=== PATIENT | male | born 1985 | race Two or more races ===

== ENCOUNTER 2016-12-17 21:31 | Emergency (ER) | payer MEDICAID ==
[2016-12-17] MEDS ORDERED: DIPH/PERTUSS(ACELL)/TETANUS VAC/PF 0.5 ML SYR (>=10YO) IM ONE (22:25)
--- NOTE | 2016-12-17 22:39 | ER Document Report ---
ED Medical Screen (RME) - General Stated Complaint: FOOT PAIN Notes: 31-year-old male, chief complaint of stepping on a nail while indoors, object went through his shoe and sock, patient reports swelling to his right foot. Tetanus is not up-to-date reportedly. Patient states he did not see the nail afterwards, he states he thinks something is stuck in his foot. TRAVEL OUTSIDE OF THE [place] IN LAST 30 DAYS: No - Related Data Allergies/Adverse Reactions: No Known Allergies Allergy (Unverified 12/17/16 22:19) Past Medical History - Social History Chew tobacco use (# tins/day): No Frequency of alcohol use: None Drug Abuse: None Renal/ Medical History: Denies: Hx Peritoneal Dialysis Physical Exam - Vital signs Vitals: Temp Pulse Resp BP Pulse Ox 98.1 F 84 18 111/61 97 12/17/16 22:14 12/17/16 22:14 12/17/16 22:14 12/17/16 22:14 12/17/16 22:14 - Extremities General lower extremity: Other - Tiny questionable entry wound on the plantar aspect of the right foot, there is definite swelling and tenderness, no erythema or heat noted, normal capillary refill and sensation Course - Vital Signs Vital signs: Temp Pulse Resp BP Pulse Ox 98.1 F 84 18 111/61 97 12/17/16 22:14 12/17/16 22:14 12/17/16 22:14 12/17/16 22:14 12/17/16 22:14
[2016-12-18] MEDS ORDERED: CEFTRIAXONE INJ 1000 MG VIAL IM ONE (04:01)
[2016-12-18] MEDS ORDERED: LIDOCAINE 1% INJ-PF (10 MG/ML) 30 ML SDV INJ ONE (04:01)
[2016-12-18] MEDS ORDERED: CIPROFLOXACIN HCL 500 MG TABLET PO ONE (04:02)
[2016-12-18] MEDS ORDERED: DOXYCYCLINE HYCLATE 100 MG TABLET PO ONE (04:02)
--- NOTE | 2016-12-18 04:24 | ER Document Report ---
ED Extremity Problem, Lower - General Chief Complaint: Foot Injury Stated Complaint: FOOT PAIN Time seen by provider: 03:45 Notes: 31-year-old male, chief complaint of stepping on a nail while indoors, object went through his shoe and sock, patient reports swelling to his right foot. Tetanus is not up-to-date reportedly. Patient states he did not see the nail afterwards, he states he thinks something is stuck in his foot. TRAVEL OUTSIDE OF THE [place] IN LAST 30 DAYS: No - Related Data Allergies/Adverse Reactions: No Known Allergies Allergy (Unverified 12/17/16 22:19) Past Medical History - General Information source: Patient, Friend - Social History Smoking Status: Never Smoker Chew tobacco use (# tins/day): No Frequency of alcohol use: None Drug Abuse: None Lives with: Family Family History: Reviewed & Not Pertinent Patient has suicidal ideation: No Patient has homicidal ideation: No - Medical History Medical History: Negative Renal/ Medical History: Denies: Hx Peritoneal Dialysis Surgical Hx: Negative - Immunizations Immunizations up to date: No Hx Diphtheria, Pertussis, Tetanus Vaccination: Yes Review of Systems - Review of Systems Constitutional: No symptoms reported EENT: No symptoms reported Cardiovascular: No symptoms reported Respiratory: No symptoms reported Gastrointestinal: No symptoms reported Genitourinary: No symptoms reported Male Genitourinary: No symptoms reported Musculoskeletal: See HPI Skin: See HPI Hematologic/Lymphatic: No symptoms reported Neurological/Psychological: No symptoms reported Physical Exam - Vital signs Vitals: Temp Pulse Resp BP Pulse Ox 98.1 F 84 18 111/61 97 12/17/16 22:14 12/17/16 22:14 12/17/16 22:14 12/17/16 22:14 12/17/16 22:14 Interpretation: Normal - General General appearance: Appears well, Alert In distress: None - HEENT Head: Normocephalic, Atraumatic Eyes: Normal Pupils: PERRL - Respiratory Respiratory status: No respiratory distress Chest status: Nontender Breath sounds: Normal Chest palpation: Normal - Cardiovascular Rhythm: Regular Heart sounds: Normal auscultation Murmur: No - Abdominal Inspection: Normal Distension: No distension Bowel sounds: Normal Tenderness: Nontender Organomegaly: No organomegaly - Back Back: Normal, Nontender - Extremities General upper extremity: Normal inspection, Nontender, Normal color, Normal ROM , Normal temperature General lower extremity: Other - There appears to be a tiny puncture wound over the plantar aspect of the right foot between the second and third digits at the MCP area. Mild soft tissue swelling of the foot, no significant erythema, no bleeding noted, no abnormal heat, normal capillary refill and sensation, normal foot exam otherwise, normal ankle exam - Neurological Neuro grossly intact: Yes Cognition: Normal Orientation: AAOx4 [place] Coma Scale Eye Opening: Spontaneous [place] Coma Scale Verbal: Oriented [place] Coma Scale Motor: Obeys Commands [place] Coma Scale Total: 15 Speech: Normal Motor strength normal: LUE, RUE, LLE, RLE Sensory: Normal - Psychological Associated symptoms: Normal affect, Normal mood - Skin Skin Temperature: Warm Skin Moisture: Dry Skin Color: Normal Course - Re-evaluation Re-evalutation: Patient with puncture to the bottom of the foot, not a through and through injury, mild soft tissue swelling to the area, no erythema, abnormal heat, or other abnormalities noted. Tetanus updated, patient given a dose of Rocephin, because obtain went through patient's shoe patient will be given Cipro in addition to covering for skin bacteria. Discussed strict follow-up and return precautions with patient and friend, friend interpreted Korean for patient on patient's request. Patient states understanding and agreement. - Vital Signs Vital signs: Temp Pulse Resp BP Pulse Ox 98.8 F 69 16 114/70 99 12/18/16 05:10 12/18/16 05:10 12/18/16 05:10 12/18/16 05:10 12/18/16 05:10 - Diagnostic Test Radiology reviewed: Image reviewed, Reports reviewed Discharge - Discharge Clinical Impression: Nail wound of right foot Qualifiers: Encounter type: initial encounter Qualified Code(s): S91.331A - Puncture wound without foreign body, right foot, initial encounter Condition: Stable Disposition: HOME, SELF-CARE Additional Instructions: The x-ray shows no abnormalities. Please take the doxycycline and Cipro antibiotics as directed, elevate her foot , keeps her foot clean, clean with soap and water, dry, apply antibiotic dressing to the wound. Use the crutches, follow up with primary care or return to the ED for a recheck in 2 days. Prescriptions: Ciprofloxacin HCl [Cipro 500 mg Tablet] 500 mg PO BID #14 tablet Doxycycline Hyclate 100 mg PO BID #14 capsule Forms: Return to Work
[2016-12-18 05:23] VITALS: BP 114/70
== END 2016-12-18 05:10 | disposition home or self-care (01) ==
LOC: ER 21:31
DX: S91.331A Puncture wound without foreign body, right foot, initial encounter (principal); W22.8XXA Striking against or struck by other objects, initial encounter; Z23 Encounter for immunization
CPT/HCPCS: 99283; 96372; 73630; J3490 ×3; J0696

== ENCOUNTER 2017-10-26 19:03 | Emergency (ER) | payer MEDICAID, OTHER ==
[2017-10-26] MEDS ORDERED: DIPH/PERTUSS(ACELL)/TETANUS VAC/PF 0.5 ML SYR (>=10YO) IM ONE (20:35)
[2017-10-26] MEDS ORDERED: SILVER SULFADIAZINE 1% CREAM 25 GM TP ONE (20:53)
--- NOTE | 2017-10-26 20:57 | ER Document Report ---
ED General - General Chief Complaint: Burn Stated Complaint: POSSIBLE BURN Time Seen by Provider: 10/26/17 20:35 Mode of Arrival: Ambulatory Information source: Patient Notes: MARTII was used to ensure proper interpretation TRAVEL OUTSIDE OF THE [place] IN LAST 30 DAYS: No - HPI Notes: 32-year-old male with history of asthma presents with left forearm burn he suffered 2 days ago. This occurred in the evening at work at [employer]. He was putting [place] fries into oil in the oral splattered and then apparently he got more hot oil on his left forearm. There was no inhalation. He had one splatter to his left neck area. Initially it was just red but has now become more inflamed appearing and some skin has sloughed off. He has no distal numbness or tingling. It does not involve any joints or the hand itself. He was not wearing gloves. They apparently put a burn spray on it at work. He has had no other treatment otherwise. Denies any other systemic symptoms though has had some mild cough and cold symptoms for the last 4 or 5 days even before this. - Related Data Allergies/Adverse Reactions: No Known Allergies Allergy (Verified 10/26/17 19:18) Past Medical History - Social History Smoking Status: Never Smoker Frequency of alcohol use: None Drug Abuse: None Family History: Reviewed & Not Pertinent Patient has suicidal ideation: No Patient has homicidal ideation: No Pulmonary Medical History: Reports: Hx Asthma Endocrine Medical History: Denies: Hx Diabetes Mellitus Type 1, Hx Diabetes Mellitus Type 2 Renal/ Medical History: Denies: Hx Peritoneal Dialysis - Immunizations Immunizations up to date: No Hx Diphtheria, Pertussis, Tetanus Vaccination: Yes Review of Systems - Review of Systems Constitutional: denies: Fever EENT: See HPI Cardiovascular: See HPI Respiratory: denies: Short of breath, Sputum Skin: See HPI Neurological/Psychological: denies: Numbness Physical Exam - Vital signs Vitals: Temp Pulse Resp BP 98.3 F 89 20 130/83 H 10/26/17 19:30 10/26/17 19:30 10/26/17 19:30 10/26/17 19:30 Interpretation: Normal, Hypertensive - Patient instructed for follow-up - Notes Notes: GENERAL: VS as per nursing doc. Well-appearing, well-nourished and in no acute distress. HEAD: Atraumatic, normocephalic. EYES: No ocular burn, no conjunctival injection or discharge. ENT: Nares patent, no facial burn, there is a small area approximately 2 mm over his left neck SCM where there has been a recent burn. NECK: Normal range of motion, supple without lymphadenopathy. See above LUNGS: Breath sounds clear to auscultation bilaterally and equal. No wheezes rales or rhonchi. HEART: Regular rate and rhythm without murmurs. 2+ radial pulse EXTREMITIES: Normal range of motion NEUROLOGICAL: Normal sensory and motor exams PSYCH: Normal mood, normal affect. SKIN: Warm, dry. There is a denuded area of approximately 5 cm that is circular in the midportion of what appears to be a second-degree burn over the volar surface of the forearm extending approximately 15 cm in length and approximately 8 cm in width. It is irregular shaped. There is some overlying skin that does not appear viable but it is not loose and appears very adherent at this point. Mild associated erythema. No evidence of secondary infection or lymphangitis. Course - Re-evaluation Re-evalutation: 10/26/17 21:04 We had a long discussion and all questions were answered. Please see the discharge instructions were verbally understood using staff interpreter both in and MARTII. Tetanus shot is updated. Wound care instructions given. They voiced understanding they must be seen tomorrow by here are occupational health, at least notified and wound check in the next 48 hours. - Vital Signs Vital signs: Temp Pulse Resp BP Pulse Ox 98.3 F 89 20 130/83 H 10/26/17 19:30 10/26/17 19:30 10/26/17 19:30 10/26/17 19:30 Discharge - Discharge Clinical Impression: Second degree burn injury Condition: Good Disposition: HOME, SELF-CARE Additional Instructions: Wash the wound with soap and water twice daily, pat dry and let air dry. Then apply a light coat of Silvadene twice daily with wrap to keep the cream from getting everywhere. Let your occupational health know tomorrow morning that you were seen here tonight, treatment plans, mandatory reevaluation within the next 36 hours as well as tetanus shot was updated. They will make you make a report of this injury and assigned you a physician for follow-up. Return for any problems or concerns in the meanwhile. Use an anti-inflammatory such as ibuprofen or Aleve. Keep the area clean dry and protected otherwise.Longo The seriousness of a burn is not always obvious at first. Delayed tissue damage and secondary infection may occur despite proper treatment. Proper care is very important. A burn that is third-degree may need skin grafting. Most longo, however, are simply protected with dressings until healed. Keep the burn clean. If the dressing gets wet, remove it and blot the wound dry, then apply a fresh dressing. Dressings should be changed at least once daily. Soaks to remove crusting are usually started in about two days. Longo in certain areas require stretching to prevent disabling tightness. Your doctor will advise you about this. For pain control, you may frequently apply a hand towel that has been dipped in water with ice cubes. Do not apply ice directly to the burned areas. If any signs of infection occur (swelling, redness, increasing tenderness, red streaks, tender lumps in the armpit or groin above the burn, or fever), contact the doctor immediately. Wash the wound with soap and water twice daily, pat dry and let air dry. Then apply a light coat of Silvadene twice daily with wrap to keep the cream from getting everywhere. Let your occupational health know tomorrow morning that you were seen here tonight, treatment plans, mandatory reevaluation within the next 36 hours as well as tetanus shot was updated. They will make you make a report of this injury and assigned you a physician for follow-up. Return for any problems or concerns in the meanwhile. Use an anti-inflammatory such as ibuprofen or Aleve. Keep the area clean dry and protected otherwise.
[2017-10-26 22:09] VITALS: BP 123/78
== END 2017-10-26 22:10 | disposition home or self-care (01) ==
LOC: ER 19:03
DX: T22.212A Burn of second degree of left forearm, initial encounter (principal); X10.2XXA Contact with fats and cooking oils, initial encounter; Y93.G3 Activity, cooking and baking; Y92.511 Restaurant or cafe as the place of occurrence of the external cause; Y99.0 Civilian activity done for income or pay; J45.909 Unspecified asthma, uncomplicated; Z23 Encounter for immunization
CPT/HCPCS: 90471; 90715; 99283

== ENCOUNTER 2017-10-28 17:14 | Emergency (ER) | payer OTHER ==
[2017-10-28] MEDS ORDERED: SILVER SULFADIAZINE 1% CREAM 50 GM TP ONE (19:22)
--- NOTE | 2017-10-28 19:23 | ER Document Report ---
ED Suture/Wound Recheck - General Chief Complaint: Wound Recheck Stated Complaint: RECHECK BURN ON LEFT ARM Time Seen by Provider: 10/28/17 19:04 Notes: pt here for recheck of burn to left forearm. pt burned arm 2 days ago at work, splattered with hot grease while cooking [place] fries. pt has been cleaning with soap and water and applying silvadene as instructed. reports minimal pain. TRAVEL OUTSIDE OF THE [place] IN LAST 30 DAYS: No - HPI Previous ED treatment: Burn dressing Antibiotics given previously: Prescription Quality of pain: No pain Context: Injury, Work related Symptoms since procedure: No complaints Exacerbated by: Denies Relieved by: Denies - Related Data Allergies/Adverse Reactions: No Known Allergies Allergy (Verified 10/26/17 19:18) Past Medical History - General Information source: Patient - Social History Smoking Status: Never Smoker Frequency of alcohol use: None Drug Abuse: None Family History: Reviewed & Not Pertinent Patient has suicidal ideation: No Patient has homicidal ideation: No Pulmonary Medical History: Reports: Hx Asthma Endocrine Medical History: Denies: Hx Diabetes Mellitus Type 1, Hx Diabetes Mellitus Type 2 Renal/ Medical History: Denies: Hx Peritoneal Dialysis - Immunizations Immunizations up to date: No Hx Diphtheria, Pertussis, Tetanus Vaccination: Yes Review of Systems - Review of Systems Constitutional: No symptoms reported EENT: No symptoms reported Cardiovascular: No symptoms reported Respiratory: No symptoms reported Gastrointestinal: No symptoms reported Genitourinary: No symptoms reported Male Genitourinary: No symptoms reported Musculoskeletal: No symptoms reported Skin: See HPI Hematologic/Lymphatic: No symptoms reported Neurological/Psychological: No symptoms reported Physical Exam - Vital signs Vitals: Temp Pulse Resp BP Pulse Ox 98.4 F 67 18 125/81 97 10/28/17 17:25 10/28/17 17:25 10/28/17 17:25 10/28/17 17:25 10/28/17 17:25 Interpretation: Normal - General General appearance: Appears well, Alert - HEENT Head: Normocephalic, Atraumatic Eyes: Normal Pupils: PERRL - Respiratory Respiratory status: No respiratory distress Chest status: Nontender Breath sounds: Normal Chest palpation: Normal - Cardiovascular Rhythm: Regular Heart sounds: Normal auscultation Murmur: No - Abdominal Inspection: Normal Distension: No distension Bowel sounds: Normal Tenderness: Nontender Organomegaly: No organomegaly - Back Back: Normal, Nontender - Extremities General upper extremity: Normal inspection, Nontender, Normal color, Normal ROM , Normal temperature General lower extremity: Normal inspection, Nontender, Normal color, Normal ROM , Normal temperature, Normal weight bearing. No: Gabby's sign - Neurological Neuro grossly intact: Yes Cognition: Normal Orientation: AAOx4 [place] Coma Scale Eye Opening: Spontaneous [place] Coma Scale Verbal: Oriented [place] Coma Scale Motor: Obeys Commands [place] Coma Scale Total: 15 Speech: Normal Motor strength normal: LUE, RUE, LLE, RLE Sensory: Normal - Psychological Associated symptoms: Normal affect, Normal mood - Skin Skin Temperature: Warm Skin Moisture: Dry Skin Color: Other - + burn to volar surface of the left forearm extending approximately 15 cm in length and approximately 8 cm in width. + sloughing. Mild associated erythema. No evidence of secondary infection or lymphangitis. no involvment of the hand. distal SMC intact Course - Re-evaluation Re-evalutation: 10/28/17 19:34 Martii was used for interpretation. no signs of compartment syndrome, infection, sepsis. burn is healing well. no signs of infection. continue current wound care with soap and water cleansing, silvadene dressing changes. instructed to follow up with employer's worker's comp provider. pt is agreeable with plan and stable for discharge - Vital Signs Vital signs: Temp Pulse Resp BP Pulse Ox 98.4 F 67 18 125/81 97 10/28/17 17:25 10/28/17 17:25 10/28/17 17:25 10/28/17 17:25 10/28/17 17:25 Discharge - Discharge Clinical Impression: Burn of left arm Qualifiers: Encounter type: initial encounter Upper extremity location: forearm Burn degree : partial thickness (2nd degree) Qualified Code(s): T22.212A - Burn of second degree of left forearm, initial encounter Condition: Stable Disposition: HOME, SELF-CARE Instructions: Rodgers ([facility]), Silvadene Cream ([facility]) Additional Instructions: Wash the wound with soap and water twice daily, pat dry and let air dry. 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
[2017-10-28] MEDS ORDERED: SILVER SULFADIAZINE 1% CREAM 25 GM TP ONE (20:21)
[2017-10-28 20:53] VITALS: BP 128/78
== END 2017-10-28 20:53 | disposition home or self-care (01) ==
LOC: ER 17:14
DX: T22.212D Burn of second degree of left forearm, subsequent encounter (principal); X10.2XXD Contact with fats and cooking oils, subsequent encounter; J45.909 Unspecified asthma, uncomplicated
CPT/HCPCS: 99282; J3490

== ENCOUNTER 2018-02-27 23:12 | Emergency (ER) | payer SELFPAY ==
[2018-02-28] MEDS ORDERED: FAMOTIDINE 20 MG TABLET PO ONE (01:22)
[2018-02-28] MEDS ORDERED: METOCLOPRAMIDE HCL ORAL SOLN 10 MG/10 ML UDCUP PO ONE (01:22)
[2018-02-28] MEDS ORDERED: MAG HYDROX/AL HYDROX/SIMETH SUSP 30 ML UDCUP PO ONE (01:22)
[2018-02-28] MEDS ORDERED: LIDOCAINE 2% VISCOUS SOLN 20 ML UDCUP PO ONE (01:22)
[2018-02-28] MEDS ORDERED: LIDOCAINE 5% (700 MG) TRANSDERMAL ADH..PATCH TP ONE (01:22)
--- NOTE | 2018-02-28 01:25 | ER Document Report ---
ED General - General Chief Complaint: Abdominal Pain Stated Complaint: BACK PAIN Time Seen by Provider: 02/28/18 01:03 Notes: Patient is a 32-year-old male without past medical history who presents with 3 weeks of intermittent epigastric abdominal pain with associated reflux symptoms. He describes as a dull, aching, intermittent pain in the upper abdomen worsened by eating. He notes associated nausea but no vomiting. He has been having regular bowel movements. Patient secondarily complains of 3-4 weeks of bilateral paralumbar spine low back pain. States that this pain is likewise intermittent, worsened by moving or bending and he believes it is related to straining himself at work. He denies any bowel or bladder incontinence, urinary retention, or lower extremity weakness, numbness or difficulty ambulating. He denies any alcohol, tobacco use or IV drug use. He denies a history of similar symptoms in the past. He has not seen a primary care doctor regarding today's concerns. The history and physical exam was obtained by the provider using Cambodian. A formal hospital supervisor special education was offered to the patient and any family at the bedside at the beginning of the encounter and was declined. TRAVEL OUTSIDE OF THE [place] IN LAST 30 DAYS: No - Related Data Allergies/Adverse Reactions: No Known Allergies Allergy (Verified 10/26/17 19:18) Past Medical History - General Information source: Patient - Social History Smoking Status: Never Smoker Frequency of alcohol use: None Drug Abuse: None Lives with: Family Family History: Reviewed & Not Pertinent Pulmonary Medical History: Reports: Hx Asthma Endocrine Medical History: Denies: Hx Diabetes Mellitus Type 1, Hx Diabetes Mellitus Type 2 Renal/ Medical History: Denies: Hx Peritoneal Dialysis - Immunizations Immunizations up to date: No Hx Diphtheria, Pertussis, Tetanus Vaccination: Yes Review of Systems - Review of Systems Notes: Constitutional: Negative for fever. HENT: Negative for sore throat. Eyes: Negative for visual changes. Cardiovascular: Negative for chest pain. Respiratory: Negative for shortness of breath. Gastrointestinal: Positive for abdominal pain and nausea Genitourinary: Negative for dysuria. Musculoskeletal: Positive for back pain. Skin: Negative for rash. Neurological: Negative for headaches, weakness or numbness. 10 point ROS negative except as marked above and in HPI. Physical Exam - Vital signs Vitals: Temp Pulse Resp BP Pulse Ox 97.5 F 88 18 126/80 H 97 02/28/18 00:02 02/28/18 00:02 02/28/18 00:02 02/28/18 00:02 02/28/18 00:02 Interpretation: Normal Notes: PHYSICAL EXAMINATION: GENERAL: Well-appearing, well-nourished and in no acute distress. HEAD: Atraumatic, normocephalic. EYES: Pupils equal round and reactive to light, extraocular movements intact, sclera anicteric, conjunctiva are normal. ENT: nares patent, oropharynx clear without exudates. Moist mucous membranes. NECK: Normal range of motion, supple without lymphadenopathy LUNGS: Breath sounds clear to auscultation bilaterally and equal. No wheezes rales or rhonchi. HEART: Regular rate and rhythm without murmurs ABDOMEN: Soft, mild epigastric abdominal tenderness to palpation but no other localized areas of tenderness, normoactive bowel sounds. No guarding, no rebound. No masses appreciated. EXTREMITIES: Normal range of motion, no pitting or edema. No cyanosis. Back: No midline spinal tenderness, step-offs or deformities NEUROLOGICAL: 5 out of 5 strength both distally and proximally bilateral lower extremities. 2+ patellar reflexes bilaterally. No clonus. Sensation grossly intact in the bilateral lower extremities. Patient is able to ambulate without difficulty. PSYCH: Normal mood, normal affect. SKIN: Warm, Dry, normal turgor, no rashes or lesions noted. Course - Re-evaluation Re-evalutation: 02/28/18 01:23 Patient presents with epigastric abdominal pain with associated reflux symptoms most consistent with likely gastritis. Patient does have some focal epigastric abdominal tenderness on abdominal examination but no other localized areas of tenderness. Patient has no focal right upper quadrant abdominal tenderness and denies symptoms that would be consistent with acute biliary pathology. Lipase is normal. No LFT changes. Based on history and exam, I do not suspect ACS, pulmonary embolus, SBO, mesenteric ischemia, acute pancreatitis, biliary pathology, or an abdominal aortic dissection. Patient has had improvement of symptoms here with a GI cocktail. At this time will discharge with return precautions and follow-up recommendations. Patient did also have some musculoskeletal low back pain that has been ongoing intermittently for the past 2 weeks. No rapid progression of symptoms, systemic symptoms including fevers, chills, weight loss, history of recent bacterial infection, bilateral symptoms, numbness, weakness, difficulty walking, urinary retention or bowel incontinence , personal history of cancer, immunosuppression, diabetes, known AAA, or history of IV drug use. Exam is without point tenderness over vertebral bodies , pulsatile abdominal mass, and patient has symmetric and intact lower extremity strength, sensation, and reflexes without clonus. 2+ symmetric medial malleolar and dorsalis pedis pulses. Based on history and physical, I have a very low suspicion of a concerning etiology of pain including epidural compression syndrome, spinal infection, transverse myelitis, malignancy, abdominal aortic aneurysm, renal colic, acute lower extremity claudication, neurogenic claudication, ankylosing spondylitis, or other intra-abdominal process. Due to absence of concerning risk factors in history and physical as well as absence of rapidly progressive, severe, or bilateral symptoms, will defer imaging at this point. At this time will discharge with return precautions and follow-up recommendations. Verbal discharge instructions given a the bedside and opportunity for questions given. Medication warnings reviewed. Patient is in agreement with this plan and has verbalized understanding of return precautions and the need for primary care follow-up in the next 24-72 hours. - Vital Signs Vital signs: Temp Pulse Resp BP Pulse Ox 97.5 F 88 18 126/80 H 97 02/28/18 00:02 02/28/18 00:02 02/28/18 00:02 02/28/18 00:02 02/28/18 00:02 - Laboratory Result Diagrams: 02/28/18 01:47 02/28/18 01:47 Laboratory results interpreted by me: 02/28/18 01:47 BUN 24 H Discharge - Discharge Clinical Impression: Upper abdominal pain Gastritis Qualifiers: Gastritis type: unspecified gastritis Chronicity: acute Gastritis bleeding: presence of bleeding unspecified Qualified Code(s): K29.00 - Acute gastritis without bleeding Low back pain Qualifiers: Chronicity: acute Back pain laterality: bilateral Sciatica presence: without sciatica Qualified Code(s): M54.5 - Low back pain Condition: Good Disposition: HOME, SELF-CARE Additional Instructions: Your symptoms appear to be most consistent with stomach or upper intestinal irritation. Please begin taking famotidine 40 mg in the morning and 40 mg at night. This medicine can be purchased directly [id number]. You may also take medicine such as Pepto-Bismol or Tums to assist with your pain. Please return to emergency department immediately if you have worsening of your pain, shortness of breath, vomiting, become unable to exert yourself due to pain or difficulty breathing, you pass out, or have any pain that radiates into your arms, jaw, or back. Please also return if you have any additional symptoms that are concerning to you. As we have discussed, the most important thing is lifestyle changes. You need to avoid smoking, sodas, tea, coffee, alcohol, spicy foods, and acidic foods such as citrus fruits, tomato based products, berries, and most fruit juices. You have been seen in the Emergency Department (ED) today for back pain. Your workup and exam have not shown any acute abnormalities and you are likely suffering from muscle strain or possible problems with your discs, but there is no treatment that will fix your symptoms at this time. Take Tylenol 1000 mg every 6 hours as needed for pain. You should also purchase a local lidocaine cream such as "aspercreme with lidocaine" and use per bottle instructions to the affected area. Apply heat to the area as often as you are able. Continue to keep active and avoid prolonged periods of bed rest. Please follow up with your doctor as soon as possible regarding today's ED visit and your back pain. Return to the ED for worsening back pain, fever, weakness or numbness of either leg, or if you develop either (1) an inability to urinate or have bowel movements, or (2) loss of your ability to control your bathroom functions (if you start having "accidents"), or if you develop other new symptoms that concern you.concern you.
[2018-02-28 01:57] LABS: ABSOLUTE EOSINOPHILS # (AUTO) 0.2 10^3/uL (0.0-0.6); ABSOLUTE LYMPHOCYTES (AUTO) 2.9 10^3/uL (0.5-4.7); ABSOLUTE MONOCYTES (AUTO) 0.9 10^3/uL (0.1-1.4); ABSOLUTE NEUT (AUTO) 4.7 10^3/uL (1.7-8.2); BASOPHILS % (AUTO) 0.3 % (0-2); EOSINOPHILS % (AUTO) 2.1 % (0-6); HEMATOCRIT 46.2 % (37.9-51.0); HEMOGLOBIN 16.3 g/dL (13.5-17.0); LYMPHOCYTES % (AUTO) 33.4 % (13-45); MEAN CORPUSCULAR HGB CONC 35.3 g/dL (32.0-36.0); MEAN CORPUSCULAR VOLUME 85 fl (80-97); MONOCYTES % (AUTO) 10.1 % (3-13); PLATELET COUNT 226 10^3/uL (150-450); RED BLOOD COUNT 5.44 10^6/uL (4.35-5.55); RED CELL DISTRIBUTION WIDTH 13.6 % (11.5-14.0); SEGMENTED NEUTROPHILS % (AUTO) 54.1 % (42-78); TOTAL CELLS COUNTED % (AUTO) 100 %; WHITE BLOOD COUNT 8.6 10^3/uL (4.0-10.5)
[2018-02-28 02:15] LABS: ALANINE AMINOTRANSFERASE 31 U/L (21-72); ALBUMIN 4.1 g/dL (3.5-5.0); ALKALINE PHOSPHATASE 47 U/L (38-126); ANION GAP 10 (5-19); ASPARTATE AMINO TRANSFERASE 19 U/L (17-59); BILIRUBIN,DIRECT 0.3 mg/dL (0.0-0.4); BLOOD UREA NITROGEN 24 mg/dL (7-20); CALCIUM 9.3 mg/dL (8.4-10.2); CARBON DIOXIDE 30 mmol/L (22-30); CHLORIDE 102 mmol/L (98-107); GLUCOSE 93 mg/dL (75-110); LIPASE 89.9 U/L (23-300); POTASSIUM 4.4 mmol/L (3.6-5.0); SODIUM 142.3 mmol/L (137-145); TOTAL PROTEIN 6.9 g/dL (6.3-8.2)
[2018-02-28 03:26] VITALS: BP 128/83
== END 2018-02-28 03:26 | disposition home or self-care (01) ==
LOC: ER 23:12
DX: K29.00 Acute gastritis without bleeding (principal); M54.5 Low back pain; R10.13 Epigastric pain
CPT/HCPCS: 99283; 36415; 83690; 85025; 80053; J3490

== ENCOUNTER 2018-03-25 21:41 | Emergency (ER) | payer OTHER ==
[2018-03-25 21:48] VITALS: BP 134/84
[2018-03-25] MEDS ORDERED: LIDOCAINE 1% INJ-PF (10 MG/ML) 30 ML SDV INJ ONE (23:30)
[2018-03-25] MEDS ORDERED: KETOROLAC TROMETHAMINE 60 MG/2 ML SDV IM ONE (23:33)
[2018-03-26] MEDS ORDERED: DIPH/PERTUSS(ACELL)/TETANUS VAC/PF 0.5 ML SYR (>=10YO) IM ONE (00:23)
[2018-03-26] MEDS ORDERED: CEPHALEXIN 500 MG CAPSULE PO ONE (00:24)
--- NOTE | 2018-03-26 00:32 | ER Document Report ---
HPI - HPI Patient complains to provider of: right hand laceration Onset: Just prior to arrival Pain Level: 1 Notes: 32-year-old male presents with approximate 2 cm laceration to the palmar surface of his hand. Patient reports that he was getting ready for bed when he slipped and cut the hand on the edge of his metal bed frame. Patient states his last tetanus shot was approximately 11 years ago. There is no active bleeding at this time. Past Medical History - General Information source: Patient - Social History Smoking Status: Never Smoker Chew tobacco use (# tins/day): No Frequency of alcohol use: None Drug Abuse: None Family History: Reviewed & Not Pertinent Patient has suicidal ideation: No Patient has homicidal ideation: No Pulmonary Medical History: Reports: Hx Asthma Endocrine Medical History: Denies: Hx Diabetes Mellitus Type 1, Hx Diabetes Mellitus Type 2 Renal/ Medical History: Denies: Hx Peritoneal Dialysis - Immunizations Immunizations up to date: No Hx Diphtheria, Pertussis, Tetanus Vaccination: Yes Vertical Provider Document - INFECTION CONTROL TRAVEL OUTSIDE OF THE [place] IN LAST 30 DAYS: No - CARDIOVASCULAR Pulses: Bounding: Radial - DERM Integumentary: Laceration - Right palmar surface of hand Course - Re-evaluation Re-evalutation: Approximate 2 cm well approximated laceration to the palmar surface of right hand. No active bleeding during the assessment. Laceration repaired with 6 sutures, wound explored and no foreign body identified. Patient given first dose of p.o. Keflex and emergency department and will be sent home with prescription for same. Patient given return precautions including signs of infection as outlined in his discharge paperwork. Patient verbalizes understanding of need to suture removal. - Vital Signs Vital signs: Temp Pulse Resp BP Pulse Ox 98.6 F 86 18 134/84 H 96 03/25/18 21:47 03/25/18 21:47 03/25/18 21:47 03/25/18 21:47 03/25/18 21:47 Procedures - Laceration/Wound Repair right hand Wound length (cm): 2 Wound's Depth, Shape: Superficial Anesthetic type: 1% Lidocaine Volume Anesthetic (mLs): 3 Wound explored: Clean, No foreign body removed Irrigated w/ Saline (mLs): 10 Wound Repaired With: Sutures Suture Size/Type: 6:0, 5:0, Vicryl, 4:0, 3:0, Ethilon, Prolene, Nylon, Other Number of Sutures: 6 Layer Closure?: No Post-procedure wound care: Sterile dressing applied Post-procedure NV exam normal: Yes Complications: No Discharge - Discharge Clinical Impression: Laceration of right hand Qualifiers: Encounter type: initial encounter Foreign body presence: without foreign body Qualified Code(s): S61.411A - Laceration without foreign body of right hand, initial encounter Condition: Stable Disposition: HOME, SELF-CARE Additional Instructions: Laceration Care Your laceration has been sutured to keep the skin edges aligned during healing. The time of suture removal depends on the nature and location of your cut. Please follow the care instructions the doctor has outlined for you and return for further care, according to the schedule you've been given. Keep the wound and dressing clean. Unless you were told otherwise, you may shower daily, blotting the wound dry with a clean, unused towel. At other times, If the dressing gets wet or blood soaked, remove it and blot the wound dry, then reapply a new dressing. Unless you were instructed otherwise, dressings should be changed at least daily. If any signs of infection occur (swelling, redness, increasing tenderness, red streaks, tender lumps in the armpit or groin above the laceration, or fever) , see the doctor immediately. Please return to the emergency department or your primary care provider in 8-10 days for suture removal. Please return earlier if you develop any signs of infection such as increased redness, swelling, foul-smelling drainage or fever. Por favor regrese para remover la sutura en 8 fu. Regrese al servicio de urgencias si presenta un empeoramiento del dolor, enrojecimiento o drenaje con mal olor. Puede usar calor y hielo alternos para newsome dolor de espalda baja. Elvis un seguimiento con newsome mdico de cabecera si newsome dolor lumbar no mejora en las prximas semanas. Prescriptions: Cephalexin Monohydrate [Keflex 500 mg Capsule] 500 mg PO Q6H 5 Days #20 capsule Forms: Return to School, Return to Work
== END 2018-03-26 00:53 | disposition home or self-care (01) ==
LOC: ER 21:41
PROC: 0HQFXZZ Repair Right Hand Skin, External Approach (ICD-10-PCS; principal; 2018-03-25)
DX: S61.411A Laceration without foreign body of right hand, initial encounter (principal); W01.190A Fall on same level from slipping, tripping and stumbling with subsequent striking against furniture, initial encounter; Z23 Encounter for immunization
CPT/HCPCS: 99282; 96372; 90471; 90715; 12001; J1885

== ENCOUNTER → 2020-01-11 | Outpatient (CLI) | payer SELFPAY ==
--- NOTE | 2020-01-11 12:26 | RADIOLOGY REPORT (SQ) ---
EXAM DESCRIPTION: CHEST PA/LATERAL COMPLETED DATE/TIME: 01/11/2020 10:50 am REASON FOR STUDY: ABNORMAL WEIGHT LOSS COMPARISON: None. EXAM PARAMETERS: NUMBER OF VIEWS: two views TECHNIQUE: Digital Frontal and Lateral radiographic views of the chest acquired. RADIATION DOSE: NA LIMITATIONS: none FINDINGS: LUNGS AND PLEURA: No opacities, masses or pneumothorax. No pleural effusion. MEDIASTINUM AND HILAR STRUCTURES: No masses or contour abnormalities. HEART AND VASCULAR STRUCTURES: Heart normal size. No evidence for failure. BONES: No acute findings. HARDWARE: None in the chest. OTHER: No other significant finding. IMPRESSION: NO SIGNIFICANT RADIOGRAPHIC FINDING IN THE CHEST. TECHNICAL DOCUMENTATION: JOB ID: [id number] 2010 [employer]- All Rights Reserved Reading location - IP/workstation name: [email or web address]
== END ==
LOC: OD 10:38
PROVIDERS: ATTEND Nurse Practitioner Family
DX: R63.4 Abnormal weight loss (principal)
CPT/HCPCS: 71046

== ENCOUNTER 2020-01-17 16:06 | Emergency (ER) | payer SELFPAY ==
[2020-01-17] MEDS ORDERED: ASPIRIN 81 MG TABLET, CHEWABLE PO ONE (16:31)
[2020-01-17] MEDS ORDERED: ONDANSETRON 4 MG TAB.RAPDIS PO ONE (16:32)
--- NOTE | 2020-01-17 16:34 | ER Document Report ---
ED Medical Screen (RME) - General Chief Complaint: Shortness Of Breath Stated Complaint: RIGHT HAND FINGER INJURY/HEADACHE/ASTHMA Time Seen by Provider: 01/17/20 16:12 Primary Care Provider: FRITZ FRANKLIN FNP [Primary Care Provider] - Follow up as needed Information source: Patient Notes: Patient presents complaining of 3-day history of left lower rib pain and shortness of breath. Patient reports nausea and decreased appetite. Patient also complains of some dizziness. Patient also reports injuring his right third finger. Patient's tetanus immunization is currently up-to-date. Patient has a history of hypertension, dyslipidemia and asthma. I have greeted and performed a rapid initial assessment of this patient. A comprehensive ED assessment and evaluation of the patient, analysis of test results and completion of the medical decision making process will be conducted by additional ED providers. TRAVEL OUTSIDE OF THE [place] IN LAST 30 DAYS: No - Related Data Allergies/Adverse Reactions: No Known Allergies Allergy (Verified 01/17/20 16:11) Past Medical History Pulmonary Medical History: Reports: Hx Asthma Endocrine Medical History: Denies: Hx Diabetes Mellitus Type 1, Hx Diabetes Mellitus Type 2 Renal/ Medical History: Denies: Hx Peritoneal Dialysis - Immunizations Immunizations up to date: No Hx Diphtheria, Pertussis, Tetanus Vaccination: Yes Physical Exam - Vital signs Vitals: Temp Pulse Resp BP Pulse Ox 98.1 F 80 16 121/63 98 01/17/20 16:12 01/17/20 16:12 01/17/20 16:12 01/17/20 16:12 01/17/20 16:12 - General General appearance: Appears well, Alert Notes: Left lower anterior costal rib tenderness with palpation, left upper quadrant tenderness with palpation while patient sitting in chair Course - Vital Signs Vital signs: Temp Pulse Resp BP Pulse Ox 98.1 F 80 16 121/63 98 01/17/20 16:12 01/17/20 16:12 01/17/20 16:12 01/17/20 16:12 01/17/20 16:12 Doctor's Discharge - Discharge Referrals: FRITZ FRANKLIN FNP [Primary Care Provider] - Follow up as needed
--- NOTE | 2020-01-17 16:58 | RADIOLOGY REPORT (SQ) ---
EXAM DESCRIPTION: CHEST 2 VIEWS COMPLETED DATE/TIME: 01/17/2020 4:47 pm REASON FOR STUDY: rib pain COMPARISON: 01/11/2020. EXAM PARAMETERS: NUMBER OF VIEWS: two views TECHNIQUE: Digital Frontal and Lateral radiographic views of the chest acquired. RADIATION DOSE: NA LIMITATIONS: none FINDINGS: LUNGS AND PLEURA: No opacities, masses or pneumothorax. No pleural effusion. MEDIASTINUM AND HILAR STRUCTURES: No masses or contour abnormalities. HEART AND VASCULAR STRUCTURES: Heart normal size. No evidence for failure. BONES: No acute findings. HARDWARE: None in the chest. OTHER: No other significant finding. IMPRESSION: NO ACUTE RADIOGRAPHIC FINDING IN THE CHEST. TECHNICAL DOCUMENTATION: JOB ID: [id number] 2010 [employer]- All Rights Reserved Reading location - IP/workstation name: [email or web address]
[2020-01-17 17:36] LABS: ABSOLUTE LYMPHOCYTES (AUTO) 0.9 10^3/uL (0.5-4.7); ABSOLUTE MONOCYTES (AUTO) 1.3 10^3/uL (0.1-1.4); ABSOLUTE NEUT (AUTO) 5.3 10^3/uL (1.7-8.2); BASOPHILS % (AUTO) 0.3 % (0-2); EOSINOPHILS % (AUTO) 0.2 % (0-6); HEMATOCRIT 42.1 % (37.9-51.0); HEMOGLOBIN 15.2 g/dL (13.5-17.0); LYMPHOCYTES % (AUTO) 11.9 % (13-45); MEAN CORPUSCULAR HEMOGLOBIN 30.7 pg (27.0-33.4); MEAN CORPUSCULAR VOLUME 85 fl (80-97); MONOCYTES % (AUTO) 17.4 % (3-13); PLATELET COUNT 206 10^3/uL (150-450); RED BLOOD COUNT 4.94 10^6/uL (4.35-5.55); RED CELL DISTRIBUTION WIDTH 13.4 % (11.5-14.0); SEGMENTED NEUTROPHILS % (AUTO) 70.2 % (42-78); TOTAL CELLS COUNTED % (AUTO) 100 %; WHITE BLOOD COUNT 7.5 10^3/uL (4.0-10.5)
--- NOTE | 2020-01-17 17:56 | ER Document Report ---
ED General - General Chief Complaint: Shortness Of Breath Stated Complaint: RIGHT HAND FINGER INJURY/HEADACHE/ASTHMA Time Seen by Provider: 01/17/20 16:12 Primary Care Provider: FRITZ FRANKLIN FNP [NO LOCAL MD] - Follow up as needed Information source: Patient Notes: copied note from [facility] Pt ambulated to triage room without difficulty. Pati #[id number] used for translation. Pt reports pain in the eyes, rib pain, decrease appetite and SOB x 3 days. Pt reports nausea, denies vomiting or diarrhea. 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 Pt able to move right finger without difficulty. Pt sitting up to chair, Resp even & unlabored. Pt able to speak in complete sentences. AMBER Judge present for triage. TRAVEL OUTSIDE OF THE [place] IN LAST 30 DAYS: No - HPI Onset: Other - x 3 days ; patient awoke this morning with nausea and vomiting and left upper quadrant abdominal pain left chest pain and sore throat and headache; patient reports he has 7 people in the family but no one else is sick. Patient speaks fair French. He appears to understand what I am saying. Onset/Duration: Persistent, Worse Quality of pain: Achy Severity: None Pain Level: 1 Associated symptoms: Body/muscle aches Exacerbated by: Deep breathing, Food Relieved by: Denies Similar symptoms previously: No Recently seen / treated by doctor: No - Related Data Allergies/Adverse Reactions: No Known Allergies Allergy (Verified 01/17/20 16:11) Past Medical History - General Information source: Patient - Social History Smoking Status: Never Smoker Cigarette use (# per day): No Chew tobacco use (# tins/day): No Smoking Education Provided: No Frequency of alcohol use: None Drug Abuse: None Lives with: Family Family History: DM, Other - Depression Patient has suicidal ideation: No Patient has homicidal ideation: No - Past Medical History Cardiac Medical History: Reports: Hx Hypercholesterolemia Pulmonary Medical History: Reports: Hx Asthma Endocrine Medical History: Denies: Hx Diabetes Mellitus Type 1, Hx Diabetes Mellitus Type 2 Renal/ Medical History: Denies: Hx Peritoneal Dialysis - Immunizations Immunizations up to date: No Hx Diphtheria, Pertussis, Tetanus Vaccination: Yes Review of Systems - Review of Systems Constitutional: See HPI, Malaise, Weakness EENT: See HPI, Nose congestion Cardiovascular: No symptoms reported Respiratory: See HPI, Cough Gastrointestinal: See HPI, Nausea Genitourinary: See HPI, Dysuria Male Genitourinary: No symptoms reported Musculoskeletal: No symptoms reported Skin: No symptoms reported Hematologic/Lymphatic: No symptoms reported Neurological/Psychological: No symptoms reported Physical Exam - Vital signs Vitals: Temp Pulse Resp BP Pulse Ox 98.1 F 80 16 121/63 98 01/17/20 16:12 01/17/20 16:12 01/17/20 16:12 01/17/20 16:12 01/17/20 16:12 Interpretation: Normal - HEENT Head: Normocephalic Eyes: Normal Conjunctiva: Normal Cornea: Normal Extraocular movements intact: Yes Eyelashes: Normal Pupils: PERRL Sinus: Normal Nasal: Normal Mouth/Lips: Normal Mucous membranes: Normal Pharynx: Normal Neck: Normal - Respiratory Respiratory status: No respiratory distress Chest status: Nontender Breath sounds: Normal Chest palpation: Normal - Cardiovascular Rhythm: Regular Heart sounds: Normal auscultation Murmur: No Friction rub: No Horace's crunch: No - Abdominal Inspection: Normal Distension: No distension Bowel sounds: Normal Tenderness: Tender - LUQ Organomegaly: No organomegaly - Genitourinary Tenderness: Nontender Scrotum: Normal - Extremities General upper extremity: Normal inspection General lower extremity: Normal inspection - Neurological Neuro grossly intact: Yes Cognition: Normal Orientation: AAOx4 [place] Coma Scale Eye Opening: Spontaneous Katheryn Coma Scale Verbal: Oriented [place] Coma Scale Motor: Obeys Commands [place] Coma Scale Total: 15 Speech: Normal Cranial nerves: Normal Cerebellar coordination: Normal Motor strength normal: LUE, RUE, LLE, RLE - Psychological Associated symptoms: Normal affect - Skin Skin Temperature: Warm Skin Moisture: Dry Course - Vital Signs Vital signs: Temp Pulse Resp BP Pulse Ox 97.9 F 80 16 127/72 H 100 01/17/20 17:39 01/17/20 16:12 01/17/20 17:39 01/17/20 17:39 01/17/20 17:39 - Laboratory Result Diagrams: 01/17/20 16:40 01/17/20 16:40 Laboratory results interpreted by me: 01/17/20 01/17/20 01/17/20 16:40 16:40 18:12 Lymph % (Auto) 11.9 L [place] % (Auto) 17.4 H BUN 24 H Urine Protein 30 H Urine Ketones TRACE H Urine Ascorbic Acid 40 H Critical Care Note - Critical Care Note Total time excluding time spent on procedures (mins): 90 Comments: Also after sister ? David wallace arrives as independent driver.. She reports they were at a green party with many sick children with cough and cold. Patient now at [age] has very bloodshot eyes and sister was worried because he has a history of RAD asthma. His lungs were clear on auscultation and chest x-ray NAD Discharge - Discharge Clinical Impression: URI (upper respiratory infection) Qualifiers: URI type: unspecified URI Qualified Code(s): J06.9 - Acute upper respiratory infection, unspecified Conjunctivitis Qualifiers: Conjunctivitis type: acute Acute conjunctivitis type: viral Laterality: left Qualified Code(s): B30.9 - Viral conjunctivitis, unspecified Condition: Good Disposition: HOME, SELF-CARE Instructions: Upper Respiratory Illness ([facility]) Additional Instructions: Encourage fluids take medicines as directed return to ER as needed and drink chamomile tea and apply moist cool compresses to eyes every 1 hours for inflammation. Apply eyedrops as directed. Take oral medicines as directed. Prescriptions: Cephalexin Monohydrate [Keflex 500 mg Capsule] 500 mg PO TID 10 Days #30 capsule Promethazine HCl [Phenergan 25 mg Tablet] 1 tab PO TID #15 tablet Tobramycin Sulfate [Tobrex 0.3% Oph Soln 5 Ml] 1 drop BTH_EYE QID 5 Days #1 bottle Forms: Return to Work Referrals: FRITZ FRANKLIN FNP [NO LOCAL MD] - Follow up as needed
[2020-01-17 18:00] LABS: ALBUMIN 4.2 g/dL (3.5-5.0); ALKALINE PHOSPHATASE 62 U/L (38-126); ANION GAP 9 (5-19); ASPARTATE AMINO TRANSFERASE 29 U/L (17-59); BILIRUBIN,DIRECT 0.1 mg/dL (0.0-0.4); BILIRUBIN,TOTAL 0.9 mg/dL (0.2-1.3); BLOOD UREA NITROGEN 24 mg/dL (7-20); CALCIUM 9.1 mg/dL (8.4-10.2); CARBON DIOXIDE 28 mmol/L (22-30); CHLORIDE 100 mmol/L (98-107); GLUCOSE 75 mg/dL (75-110); POTASSIUM 4.4 mmol/L (3.6-5.0); TOTAL PROTEIN 7.7 g/dL (6.3-8.2)
[2020-01-17] MEDS ORDERED: NORMAL SALINE 1000 ML 1,000 ML IV ONE (18:00)
[2020-01-17 19:40] LABS: AMORPHOUS SEDIMENT,URINE TRACE /HPF; APPEARANCE,URINE TURBID; BILIRUBIN,URINE NEGATIVE (NEGATIVE); COLOR,URINE YELLOW; GLUCOSE, URINE NEGATIVE (NEGATIVE); KETONES,URINE TRACE mg/dL (NEGATIVE); LEUKOCYTE ESTERASE,URINE NEGATIVE (NEGATIVE); NITRITE,URINE NEGATIVE (NEGATIVE); PROTEIN,URINE 30 mg/dL (NEGATIVE); URINE SPECIFIC GRAVITY 1.031; UROBILINOGEN,URINE NEGATIVE mg/dL (<2.0)
[2020-01-17 21:07] VITALS: BP 130/82
[2020-01-17 21:34] LABS: A TYPE INFLUENZA AG NEGATIVE (NEGATIVE); B INFLUENZA AG NEGATIVE (NEGATIVE)
[2020-01-17] MEDS ORDERED: LEVOFLOXACIN 750 MG TABLET PO ONE (21:38)
[2020-01-17] MEDS ORDERED: HYDROCODONE BIT/HOMATROPINE 5-1.5 MG TABLET PO ONE (21:39)
[2020-01-17] MEDS ORDERED: DEXAMETHASONE 4 MG TABLET PO ONE (21:39)
== END 2020-01-17 22:09 | disposition home or self-care (01) ==
LOC: ER 16:06
DX: J06.9 Acute upper respiratory infection, unspecified (principal); B30.9 Viral conjunctivitis, unspecified; S61.212A Laceration without foreign body of right middle finger without damage to nail, initial encounter; W45.8XXA Other foreign body or object entering through skin, initial encounter; R06.02 Shortness of breath; R51 Headache; R10.12 Left upper quadrant pain; R53.1 Weakness; R11.0 Nausea; M79.10 Myalgia, unspecified site; E78.00 Pure hypercholesterolemia, unspecified
CPT/HCPCS: 99291; 99292; 96360; 36415; 87070; 87880; 83690; 85025; 80053; 81001; 84484; 87804; 71046; J8540; S0119; J7030